=== PATIENT | female | born 1985 | race Caucasian/White ===

== ENCOUNTER 2024-03-03 09:19 | Emergency (ER) | payer OTHER ==
[2024-03-03] MEDS ORDERED: HYDROcodone/Acetaminophen 5/325 mg Tablet ONE (09:35)
== END 2024-03-03 10:45 | disposition home or self-care (01) ==
LOC: CSHERS 09:19
DX: S49.91XA Unspecified injury of right shoulder and upper arm, initial encounter (principal); R56.9 Unspecified convulsions; V89.2XXA Person injured in unspecified motor-vehicle accident, traffic, initial encounter; Z55.6 Problems related to health literacy
CPT/HCPCS: 99283

== ENCOUNTER 2024-05-09 16:00 | Outpatient (CLI) | payer OTHER | END 2024-05-09 16:01 | disposition home or self-care (01) | LOC: CSHULT 16:00 | PROVIDERS: ATTEND Student in an Organized Health Care Education/Training Program | DX: R59.0 Localized enlarged lymph nodes (principal) | CPT/HCPCS: 76999 ==

== ENCOUNTER 2024-06-04 13:33 | Outpatient (CLI) | payer OTHER | END 2024-06-04 13:34 | disposition home or self-care (01) | LOC: CSHRAD 13:33 | PROVIDERS: ATTEND Nurse Practitioner Family | DX: R06.02 Shortness of breath (principal) | CPT/HCPCS: 71046 ==

== ENCOUNTER 2024-12-03 13:50 | Outpatient (CLI) | payer OTHER | END 2024-12-03 13:51 | disposition home or self-care (01) | LOC: CSHMAMMO 13:50 | PROVIDERS: ATTEND Family Medicine | DX: N64.89 Other specified disorders of breast (principal) | CPT/HCPCS: G0279 ==